=== PATIENT | male | born 1995 | race Caucasian/White ===

== ENCOUNTER 2016-11-15 00:45 | Emergency (ER) | payer SELFPAY ==
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
[2016-11-15 00:54] VITALS: RESP 16; TEMP 97.9
[2016-11-15 01:50] LABS: ETHANOL SERUM 250 mg/dL (0-10)
[2016-11-15 05:19] VITALS: BP 133/74; PULSE 84; O2SAT 96
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
== END 2016-11-15 04:30 | disposition home or self-care (01) ==
DX: F10.120 Alcohol abuse with intoxication, uncomplicated (principal)
CPT/HCPCS: G0480

== ENCOUNTER 2016-11-16 14:31 | Emergency (ER) | payer MEDICAID ==
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
[2016-11-16] MEDS ORDERED: HYDROCODONE/APAP 5/325 TAB PO ONE (15:19)
[2016-11-16] MEDS ORDERED: ONDANSETRON DISINTEGRATING 4 MG TAB PO ONE (15:19)
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
[2016-11-16 16:18] VITALS: BP 127/91; PULSE 97; RESP 16; TEMP 98.6; O2SAT 95
== END 2016-11-16 16:16 | disposition home or self-care (01) ==
DX: S06.0X0D Concussion without loss of consciousness, subsequent encounter (principal); F17.200 Nicotine dependence, unspecified, uncomplicated; S60.221D Contusion of right hand, subsequent encounter; S50.02XD Contusion of left elbow, subsequent encounter; Y09 Assault by unspecified means